=== PATIENT | female | born 1990 | race Two or more races ===

== ENCOUNTER 2025-04-19 10:40 | Emergency (ER) | payer OTHER ==
[~2025-04-19] VITALS: Ht 152.4 cm; Wt 132.9 kg
[2025-04-19 13:31] LABS: BASO % 0.3 % (0.1-1.2); EOS # 0.11 (0.04-0.54); EOS % 0.8 % (0.7-7.0); LYMPH # 1.50 (1.18-3.74); LYMPH % 11.1 % (19.3-53.1); MEAN PLATELET VOLUME 10.50 fl (9.4-12.4); MONO # 0.97 (0.24-0.82); MONO % 7.2 % (4.7-12.5); NEUT # 10.82 (1.56-6.13); NEUT % 80.2 % (34.0-71.1); RED CELL DISTRIBUTION WIDTH 13.8 % (11.6-14.4)
[2025-04-19 13:56] LABS: INR < 0.93
[2025-04-19 14:26] LABS: URINE APPEARANCE Clear; URINE BILIRRUBIN Negative (NEGATIVE); URINE BLOOD Large; URINE COLOR Orange; URINE KETONE Negative (NEGATIVE); URINE LEUKOCYTE Trace; URINE NITRATE Negative; URINE PROTEIN 30 (NEGATIVE); URINE UROBILINOGEN 0.2 E.U./dl
[2025-04-19 14:29] LABS: URINE BACTERIA 484.7 uL (0.0-1933); URINE EPITHELIAL CELLS 26.7 uL (0.0-38.8); URINE RBC 3618.2 uL (0.0-20.8); URINE WBC 50.1 uL (0.0-23.2)
[2025-04-19 15:01] LABS: BUN CREA RATIO 19.0 (7.0-25.0); CREATININE SERUM 0.36 mg/dL (0.55-1.02); GFR 208.89; GLUCOSE FASTING 98.0 mg/dL (65-100); OSMOLALITY SERUM 274.0 MOSM/KG (275-295)
[2025-04-19 15:04] LABS: HCG QUANTITATIVE 89358.0 mUI/mL (1-3)
[2025-04-19 15:13] LABS: URINE CAST 0.14 uL (0.0-1.40); URINE GLUCOSE 100 MG/DL (NEGATIVE)
== END 2025-04-19 16:31 | disposition home or self-care (01) ==
LOC: ER 10:41
PROVIDERS: General Practice
DX: O20.8 Other hemorrhage in early pregnancy (principal); Z3A.10 10 weeks gestation of pregnancy; Z91.013 Allergy to seafood; Z91.041 Radiographic dye allergy status

== ENCOUNTER 2025-05-03 13:18 | Outpatient (CLI) | payer OTHER | END 2025-05-03 13:21 | disposition home or self-care (01) | LOC: PRENATAL 13:18 | PROVIDERS: ATTEND Obstetrics & Gynecology Maternal & Fetal Medicine | DX: O36.80X0 Pregnancy with inconclusive fetal viability, not applicable or unspecified (principal); Z36.82 Encounter for antenatal screening for nuchal translucency; Z14.8 Genetic carrier of other disease; Z3A.12 12 weeks gestation of pregnancy ==